=== PATIENT | male | born 1980 | race Caucasian/White ===

== ENCOUNTER → 2017-06-02 14:41 | Outpatient (CLI) | payer BC, SELFPAY ==
--- NOTE | 2017-06-02 15:31 | NEURO ---
NCS and/or EMG Patient Report Ordering Doctor: David Washington DATE OF SERVICE: 06/02/17 Alejandro Choudhury is a 36 year old male who presents for electrodiagnostic testing of the upper limbs. He has chief complaint of bilateral hand numbness. Electrodiagnostic findings: Right median motor nerve demonstrates prolonged distal latency with normal amplitude and reduced conduction velocity. The left median motor nerve demonstrates prolonged distal latency with normal amplitude and conduction velocity. Normal ulnar motor response bilaterally. Prolonged median sensory distal latency is noted, more so on the right side. Prolonged right median palmar latency. On needle EMG, all muscles tested in the upper limbs show no evidence of denervation with normal motor unit action potentials. Electrodiagnostic impression: This is an abnormal study. 1. Electrodiagnostic findings demonstrate bilateral median mononeuropathy. This is consistent with a moderate to severe right carpal tunnel syndrome and a moderate left carpal tunnel syndrome. 2. No electrodiagnostic evidence is noted for ulnar neuropathy, including cubital tunnel syndrome. 3. No electrodiagnostic evidence noted for cervical radiculopathy. If there are any further questions, please do not hesitate to contact me.
== END ==
PROVIDERS: Family Provider Internal Medicine Infectious Disease; PCP Internal Medicine Infectious Disease; Visit Provider Internal Medicine Infectious Disease
DX: R20.0 Anesthesia of skin (principal)
CPT/HCPCS: 95886; 95912

== ENCOUNTER → 2017-07-26 10:05 | Outpatient (CLI) | payer BC, SELFPAY | PROVIDERS: Family Provider Internal Medicine Infectious Disease; PCP Internal Medicine Infectious Disease; Visit Provider Orthopaedic Surgery | PROC: (CPT 64721; principal; 2017-07-07 14:05) | DX: Z00.00 Encounter for general adult medical examination without abnormal findings (principal) ==